=== PATIENT | male | born 1955 ===

== ENCOUNTER 2021-07-26 21:13 | Inpatient (IN) ==
[2021-07-26] MEDS ORDERED: methylPREDNISolone 125 MG/2 ML VIAL IVP ONE (21:19)
[2021-07-26] MEDS ORDERED: Ipratropium/Albuterol Neb 3 ML IH ONE ×2 (21:19→23:29)
[2021-07-26] MEDS ORDERED: Azithromycin 500 MG in 0.9 % Sodium Chloride 250 ML IVPB ONE (21:19)
[2021-07-26] MEDS ORDERED: 0.9 % Sodium Chloride 1,000 ML IVC ONE ×2 (21:19→23:28)
[2021-07-26] MEDS ORDERED: cefTRIAXone 1,000 MG in Water for inj. (sterile) 10 ML IVP ONE (21:19)
[2021-07-26 21:45] LABS: Basophils % 0.2 %; Hematocrit 40.3 % (37.5-50.1); Hemoglobin 13.4 g/dL (12.9-16.9); Immature Granulocytes % 0.2 % (0-4); Lymphocytes # 0.6 K/mcL (0.6-4.6); Lymphocytes % 6.1 %; Mean Corpuscular HGB Conc 33.3 g/dL (31.6-35.5); Mean Corpuscular Volume 87.2 fL (83.0-100.0); Mean Platelet Volume 10.1 fL (9.4-12.4); Monocytes # 1.2 K/mcL (0.0-1.3); Monocytes % 11.3 %; Neutrophils # 8.5 K/mcL (1.6-8.9); Platelet Count 185 K/mcL (140-400); Red Blood Count 4.62 M/mcL (4.19-5.50); Red Cell Distribution Width 12.4 % (11.5-14.5); Segmented Neutrophils % 82.2 %; White Blood Count 10.3 K/mcL (4.3-11.1)
[2021-07-26 22:05] LABS: BUN/Creatinine Ratio 18 (6-26); Blood Urea Nitrogen 12 mg/dL (8-23); Calcium 9.3 mg/dL (8.6-10.3); Carbon Dioxide 30 mEq/L (23-29); Chloride 92 mEq/L (98-107); Glucose 139 mg/dL (70-105); Osmolality,Calculated 274 (280-300); Potassium 4.1 mEq/L (3.5-5.1); Sodium 131 mEq/L (136-145); eGFR For African Americans > 60 (> 60); eGFR For Non-African Americans > 60 (> 60)
[2021-07-26 22:06] LABS: Troponin I < 0.03 ng/mL (< 0.04)
[2021-07-26] MEDS ORDERED: Isovue-370 500 ML BOTTLE IVP ONE (22:40)
[2021-07-26] MEDS ORDERED: GuaiFENesin Liq 200 MG/10 ML UDC PO ONE (23:29)
[2021-07-26] MEDS ORDERED: 0.9 % Sodium Chloride 1,000 ML IVC SCH (23:30)
[2021-07-27 01:05] LABS: Platelet Estimate Normal (Normal)
[2021-07-27] MEDS ORDERED: Ondansetron ODT 4 MG TAB.RAPDIS SL PRN (01:51)
[2021-07-27] MEDS ORDERED: Albuterol 2.5 MG/3 ML NEBULIZER IH PRN (01:51)
[2021-07-27] MEDS ORDERED: 0.9 % Sodium Chloride 1,000 ML IVC ONE (01:51)
[2021-07-27] MEDS ORDERED: GuaiFENesin Liq 200 MG/10 ML UDC PO ONE (01:51)
[2021-07-27] MEDS ORDERED: Naloxone 0.4 MG/ML INJ IVP PRN (01:51)
[2021-07-27] MEDS: Nicotine 21 MG PATCH.TD24 TD SCH (02:34)
[2021-07-27] MEDS: 0.9 % Sodium Chloride 1,000 ML IVC SCH ×2 (03:39→13:47)
[2021-07-27] MEDS: Ipratropium/Albuterol Neb 3 ML IH SCH ×4 (04:55→23:08)
[2021-07-27 08:40] LABS: Basophils % 0.1 %; Hematocrit 38.5 % (37.5-50.1); Hemoglobin 12.6 g/dL (12.9-16.9); Immature Granulocytes % 0.2 % (0-4); Lymphocytes # 0.7 K/mcL (0.6-4.6); Lymphocytes % 6.3 %; Mean Corpuscular HGB Conc 32.7 g/dL (31.6-35.5); Mean Corpuscular Hemoglobin 28.8 pg (28.0-33.3); Mean Corpuscular Volume 88.1 fL (83.0-100.0); Mean Platelet Volume 10.7 fL (9.4-12.4); Monocytes # 0.8 K/mcL (0.0-1.3); Monocytes % 7.7 %; Platelet Count 151 K/mcL (140-400); Red Blood Count 4.37 M/mcL (4.19-5.50); Red Cell Distribution Width 12.6 % (11.5-14.5); Segmented Neutrophils % 85.7 %; White Blood Count 10.5 K/mcL (4.3-11.1)
[2021-07-27] MEDS ORDERED: Azithromycin 500 MG in 0.9 % Sodium Chloride 250 ML IVPB SCH (09:00)
[2021-07-27] MEDS ORDERED: cefTRIAXone 2,000 MG in 0.9 % Sodium Chloride Mini Bag 100 ML IVPB SCH (09:00)
[2021-07-27] MEDS ORDERED: *HR* Enoxaparin 30 MG/0.3 ML SYRINGE SQ SCH (09:00)
[2021-07-27 09:11] LABS: Alanine Aminotransferase 7 Units/L (7-52); Albumin 3.6 g/dL (3.5-5.7); Albumin/Globulin Ratio 1.3 (1.1-2.2); Alkaline Phosphatase 58 Units/L (34-104); Aspartate Amino Transferase 10 Units/L (13-39); BUN/Creatinine Ratio 16 (6-26); Bilirubin,Total 0.5 mg/dL (0.3-1.0); Blood Urea Nitrogen 10 mg/dL (8-23); Calcium 9.1 mg/dL (8.6-10.3); Carbon Dioxide 29 mEq/L (23-29); Chloride 98 mEq/L (98-107); Globulin 2.8 g/dL (2.4-3.5); Glucose 165 mg/dL (70-105); Osmolality,Calculated 283 (280-300); Potassium 4.4 mEq/L (3.5-5.1); Sodium 135 mEq/L (136-145); Total Protein 6.4 g/dL (6.4-8.9); eGFR For African Americans > 60 (> 60); eGFR For Non-African Americans > 60 (> 60)
[2021-07-27 09:22] LABS: Platelet Estimate Normal (Normal)
[2021-07-27] MEDS: MethylPREDNISolone 40 MG/ML VIAL IVP SCH ×2 (09:33→20:15)
[2021-07-27 11:41] LABS: Adenovirus Not Detected (Not Detect); Coronavirus 229E Not Detected (Not Detect); Coronavirus HKU1 Not Detected (Not Detect); Coronavirus NL63 Not Detected (Not Detect); Coronavirus OC43 Not Detected (Not Detect); Human Metapneumovirus Not Detected (Not Detect); Human Rhinovirus/Enterovirus Not Detected (Not Detect); Influenza A Subtype 2009 H1 Not Detected (Not Detect); Influenza B Not Detected (Not Detect); Parainfluenza Virus 1 Not Detected (Not Detect); Parainfluenza Virus 2 Not Detected (Not Detect); SARS-CoV-2 Not Detected (Not Detect)
[2021-07-27 11:42] LABS: Bordetella Pertussis Not Detected (Not Detect); Chlamydophila pneumoniae Not Detected (Not Detect); Mycoplasma pneumoniae Not Detected (Not Detect); Parainfluenza Virus 3 DETECTED (Not Detect); Parainfluenza Virus 4 Not Detected (Not Detect); Respiratory Syncytial Virus Not Detected (Not Detect)
[2021-07-27] MEDS ORDERED: Acetaminophen 325 MG TABLET PO PRN (13:59)
[2021-07-27] MEDS: Melatonin 3 MG TABLET PO PRN (20:11)
[2021-07-27] MEDS: Budesonide/Formoterol 160/4.5 1 PUFF INH IH SCH (23:08)
[2021-07-28] MEDS: Ipratropium/Albuterol Neb 3 ML IH SCH ×4 (05:00→23:30)
[2021-07-28] MEDS: Nicotine 21 MG PATCH.TD24 TD SCH ×2 (05:05→08:11)
[2021-07-28] MEDS: *HR* Enoxaparin 40 MG/0.4 ML SYRINGE SQ SCH (06:25)
[2021-07-28] MEDS: levoFLOXacin 750 MG/150 ML 750 MG/150 ML BAG IVPB SCH (08:08)
[2021-07-28] MEDS: MethylPREDNISolone 40 MG/ML VIAL IVP SCH (08:09)
[2021-07-28 08:27] LABS: Basophils % 0.1 %; Hematocrit 35.3 % (37.5-50.1); Hemoglobin 11.7 g/dL (12.9-16.9); Immature Granulocytes % 0.4 % (0-4); Lymphocytes # 0.6 K/mcL (0.6-4.6); Lymphocytes % 7.2 %; Mean Corpuscular HGB Conc 33.1 g/dL (31.6-35.5); Mean Corpuscular Volume 87.4 fL (83.0-100.0); Mean Platelet Volume 10.9 fL (9.4-12.4); Monocytes # 0.6 K/mcL (0.0-1.3); Monocytes % 7.7 %; Neutrophils # 6.7 K/mcL (1.6-8.9); Platelet Count 174 K/mcL (140-400); Red Blood Count 4.04 M/mcL (4.19-5.50); Red Cell Distribution Width 12.7 % (11.5-14.5); Segmented Neutrophils % 84.6 %
[2021-07-28 08:37] LABS: BUN/Creatinine Ratio 25 (6-26); Blood Urea Nitrogen 14 mg/dL (8-23); Calcium 9.4 mg/dL (8.6-10.3); Carbon Dioxide 31 mEq/L (23-29); Chloride 100 mEq/L (98-107); Glucose 135 mg/dL (70-105); Magnesium 1.9 mg/dL (1.6-2.6); Osmolality,Calculated 285 (280-300); Potassium 4.9 mEq/L (3.5-5.1); Sodium 136 mEq/L (136-145); eGFR For African Americans > 60 (> 60); eGFR For Non-African Americans > 60 (> 60)
[2021-07-28] MEDS: Budesonide/Formoterol 160/4.5 1 PUFF INH IH SCH ×2 (09:53→23:30)
[2021-07-28] MEDS: Melatonin 3 MG TABLET PO PRN (21:53)
[2021-07-29] MEDS: Ipratropium/Albuterol Neb 3 ML IH SCH ×4 (04:58→23:01)
[2021-07-29] MEDS: *HR* Enoxaparin 40 MG/0.4 ML SYRINGE SQ SCH (05:18)
[2021-07-29 07:19] LABS: Eosinophils % 0.1 %; Hematocrit 38.8 % (37.5-50.1); Hemoglobin 12.6 g/dL (12.9-16.9); Immature Granulocytes % 0.4 % (0-4); Lymphocytes # 1.3 K/mcL (0.6-4.6); Lymphocytes % 13.1 %; Mean Corpuscular HGB Conc 32.5 g/dL (31.6-35.5); Mean Corpuscular Hemoglobin 28.7 pg (28.0-33.3); Mean Corpuscular Volume 88.4 fL (83.0-100.0); Mean Platelet Volume 9.9 fL (9.4-12.4); Monocytes # 0.7 K/mcL (0.0-1.3); Monocytes % 7.6 %; Neutrophils # 7.6 K/mcL (1.6-8.9); Platelet Count 235 K/mcL (140-400); Red Blood Count 4.39 M/mcL (4.19-5.50); Red Cell Distribution Width 12.8 % (11.5-14.5); Segmented Neutrophils % 78.8 %; White Blood Count 9.6 K/mcL (4.3-11.1)
[2021-07-29] MEDS: levoFLOXacin 750 MG/150 ML 750 MG/150 ML BAG IVPB SCH (07:43)
[2021-07-29] MEDS: Nicotine 21 MG PATCH.TD24 TD SCH (07:46)
[2021-07-29 07:56] LABS: BUN/Creatinine Ratio 27 (6-26); Blood Urea Nitrogen 16 mg/dL (8-23); Calcium 9.6 mg/dL (8.6-10.3); Carbon Dioxide 32 mEq/L (23-29); Chloride 101 mEq/L (98-107); Glucose 107 mg/dL (70-105); Osmolality,Calculated 290 (280-300); Potassium 4.6 mEq/L (3.5-5.1); Sodium 139 mEq/L (136-145); eGFR For African Americans > 60 (> 60); eGFR For Non-African Americans > 60 (> 60)
[2021-07-29] MEDS: predniSONE 20 MG TABLET PO SCH (09:24)
[2021-07-29] MEDS: Budesonide/Formoterol 160/4.5 1 PUFF INH IH SCH ×2 (10:06→23:00)
[2021-07-29] MEDS: Melatonin 3 MG TABLET PO PRN (21:45)
[2021-07-30] MEDS: Ipratropium/Albuterol Neb 3 ML IH SCH ×2 (05:06→10:02)
[2021-07-30] MEDS: *HR* Enoxaparin 40 MG/0.4 ML SYRINGE SQ SCH (05:53)
[2021-07-30 06:45] LABS: Basophils % 0.1 %; Hematocrit 35.6 % (37.5-50.1); Hemoglobin 11.4 g/dL (12.9-16.9); Immature Granulocytes % 0.7 % (0-4); Lymphocytes # 1.9 K/mcL (0.6-4.6); Lymphocytes % 28.1 %; Mean Corpuscular Hemoglobin 28.3 pg (28.0-33.3); Mean Corpuscular Volume 88.3 fL (83.0-100.0); Mean Platelet Volume 9.9 fL (9.4-12.4); Monocytes # 0.8 K/mcL (0.0-1.3); Monocytes % 11.4 %; Platelet Count 255 K/mcL (140-400); Red Blood Count 4.03 M/mcL (4.19-5.50); Red Cell Distribution Width 12.8 % (11.5-14.5); Segmented Neutrophils % 59.7 %; White Blood Count 6.8 K/mcL (4.3-11.1)
[2021-07-30 07:03] LABS: BUN/Creatinine Ratio 24 (6-26); Blood Urea Nitrogen 15 mg/dL (8-23); Calcium 9.1 mg/dL (8.6-10.3); Carbon Dioxide 34 mEq/L (23-29); Chloride 103 mEq/L (98-107); Glucose 81 mg/dL (70-105); Osmolality,Calculated 290 (280-300); Potassium 4.7 mEq/L (3.5-5.1); Sodium 140 mEq/L (136-145); eGFR For African Americans > 60 (> 60); eGFR For Non-African Americans > 60 (> 60)
[2021-07-30 07:25] VITALS: BP 137/79; PULSE 82; TEMP 97.5
[2021-07-30] MEDS: levoFLOXacin 750 MG/150 ML 750 MG/150 ML BAG IVPB SCH (08:10)
[2021-07-30] MEDS: Nicotine 21 MG PATCH.TD24 TD SCH (08:21)
[2021-07-30] MEDS: predniSONE 20 MG TABLET PO SCH (08:22)
[2021-07-30] MEDS: Budesonide/Formoterol 160/4.5 1 PUFF INH IH SCH (10:02)
[2021-07-30 10:05] VITALS: RESP 18
[2021-07-30 10:08] VITALS: O2SAT 95
== END 2021-07-30 14:05 | disposition home or self-care (01) | DRG 193 ==
LOC: EMEROOPIK 21:13 → INPPIK 21:13
PROVIDERS: ADMIT Family Medicine; ATTEND Family Medicine